=== PATIENT | female | born 1935 | race Caucasian/White ===

== ENCOUNTER 2017-08-13 15:07 | Inpatient (IN) | payer MEDICARE, SELFPAY ==
[~2017-08-13] VITALS: Ht 154.9 cm; Wt 61.4 kg
[2017-08-13] MEDS ORDERED: RANI150T7 PO (15:42)
[2017-08-13] MEDS ORDERED: PREG75 PO (15:42)
[2017-08-13] MEDS ORDERED: LEFL10TA15 PO (15:42)
[2017-08-13] MEDS ORDERED: PRED5 PO (15:42)
[2017-08-13] MEDS ORDERED: HYPERTENTION PO (15:42)
[2017-08-13] MEDS ORDERED: VANCOMYCIN HCL 1 GM/D5% WATER 200 ML IV ONE (17:00)
[2017-08-13 17:13] LABS: BASOPHILS # (AUTO) 0.06 K/uL (0.00-0.20); BASOPHILS % (AUTO) 0.8 % (0.0-2.0); EOSINOPHILS # (AUTO) 0.14 K/uL (0.00-0.70); EOSINOPHILS % (AUTO) 1.76 % (1.0-6.0); HEMATOCRIT 39.9 % (36-46); HEMOGLOBIN 11.9 g/dL (12.0-16.0); LYMPHOCYTES # (AUTO) 0.9 K/uL (1.0-4.8); LYMPHOCYTES % (AUTO) 11.1 % (22.0-44.0); MEAN CORPUSCULAR HEMOGLOBIN 27.7 pg (26.0-34.0); MEAN CORPUSCULAR HGB CONC 29.9 G/dL (31.0-37.0); MEAN CORPUSCULAR VOLUME 93 fL (80-100); MONOCYTES # (AUTO) 0.5 K/uL (0.1-1.0); MONOCYTES % (AUTO) 6.2 % (2.0-9.0); NEUTROPHILS # (AUTO) 6.6 K/uL (1.8-7.7); NEUTROPHILS % (AUTO) 80.2 % (40.0-70.0); PLATELET COUNT (AUTO) 188 K/uL (150-450); RED CELL DISTRIBUTION WIDTH 18.4 % (11.5-14.5); WHITE BLOOD COUNT (AUTO) 8.2 K/uL (4.5-11.0)
[2017-08-13 17:26] LABS: ANION GAP 7 mmol/L (8-16); CALCIUM, TOTAL 7.8 mg/dL (8.8-10.5); CARBON DIOXIDE 30 mmol/L (22-29); CHLORIDE 97 mmol/L (98-107); CREATININE 0.37 mg/dL (0.60-1.30); GLOMERULAR FILTR. RATE CALC > 60 mL/min (>60); POTASSIUM 4.6 mmol/L (3.5-5.1); SODIUM SERUM 134 mmol/L (136-145); UREA NITROGEN, BLOOD 7 mg/dL (7-18)
[2017-08-13 17:32] LABS: ALANINE AMINOTRANSFERASE 23 U/L (12-78); ALBUMIN 1.9 g/dL (3.4-5.0); ASPARTATE AMINOTRANSFERASE 43 U/L (15-37); BILIRUBIN,TOTAL 0.9 mg/dL (0.1-1.0); TOTAL PROTEIN, SERUM 5.1 g/dL (6.4-8.2)
[2017-08-13 17:44] LABS: RBC MORPHOLOGY COMMENT ABNORMAL RBC MORPH
[2017-08-13 17:58] LABS: LACTIC ACID 1.8 mmol/L (0.4-2.0)
[2017-08-13] MEDS ORDERED: ACETAMINOPHEN 325 MG TABLET PO PRN ×2 (18:00→21:30)
[2017-08-13] MEDS ORDERED: 0.9% SODIUM CHLORIDE 10 ML SYRINGE IVP PRN (18:00)
[2017-08-13] MEDS ORDERED: ONDANSETRON HCL 4 MG/2 ML VIAL IVP PRN ×2 (18:00→21:30)
[2017-08-13 18:07] LABS: GLUCOSE, URINE (UA) NEGATIVE (NEGATIVE); KETONES,URINE NEGATIVE (NEGATIVE); LEUKOCYTE ESTERASE ,URINE TRACE (NEGATIVE); OCCULT BLOOD,URINE MODERATE (NEGATIVE); PH,URINE 6.5 (5.0-8.0); PROTEIN,URINE NEGATIVE (NEGATIVE)
[2017-08-13 18:12] LABS: ADD UA MICROSCOPIC YES; APPEARANCE,URINE HAZY (CLEAR)
[2017-08-13 18:13] LABS: RBC,URINE 0-2 /HPF (0-2)
[2017-08-13 18:23] LABS: B-TYPE NATRIURETIC PEPTIDE 63 pg/mL (0-100)
[2017-08-13] MEDS ORDERED: PREGABALIN 75 MG CAPSULE PO ONE (20:15)
[2017-08-13 20:27] VITALS: BP 114/58
[2017-08-13] MEDS ORDERED: IPRATROPIUM BROMIDE 0.5 MG/2.5 ML NEB SOLUTION NEB PRN (21:30)
[2017-08-13] MEDS ORDERED: ZOLPIDEM TARTRATE 5 MG TABLET PO PRN (21:30)
[2017-08-13] MEDS ORDERED: MAGNESIUM HYDROXIDE SUSPENSION 30 ML UDCUP PO PRN (21:30)
[2017-08-13] MEDS ORDERED: ALBUTEROL SULFATE 2.5 MG/0.5 ML NEB SOLUTION NEB PRN (21:30)
[2017-08-13] MEDS ORDERED: BISACODYL 10 MG RECTAL RECTAL SUPPOSITORY PR PRN (21:30)
[2017-08-13] MEDS ORDERED: SODIUM CHLORIDE 0.9% 500 ML IV ONE (21:58)
[2017-08-13] MEDS: LEVOFLOXACIN 500 MG/D5% WATER 100 ML IV SCH (22:51)
[2017-08-13 23:57] VITALS: BP 100/53
[2017-08-14] MEDS: HEPARIN SODIUM,PORCINE 5,000 UNITS/ML VIAL SQ SCH ×4 (00:01→23:17)
[2017-08-14 05:23] VITALS: BP 121/71
[2017-08-14] MEDS: MORPHINE SULFATE 2 MG/ML SYRINGE IVP PRN (06:27)
[2017-08-14 07:26] LABS: ALANINE AMINOTRANSFERASE 20 U/L (12-78); ALBUMIN 1.2 g/dL (3.4-5.0); ANION GAP 6 mmol/L (8-16); ASPARTATE AMINOTRANSFERASE 56 U/L (15-37); BILIRUBIN,TOTAL 0.7 mg/dL (0.1-1.0); CALCIUM, TOTAL 6.8 mg/dL (8.8-10.5); CARBON DIOXIDE 27 mmol/L (22-29); CHLORIDE 98 mmol/L (98-107); CREATININE 0.27 mg/dL (0.60-1.30); GLOMERULAR FILTR. RATE CALC > 60 mL/min (>60); POTASSIUM 5.6 mmol/L (3.5-5.1); SODIUM SERUM 131 mmol/L (136-145); TOTAL PROTEIN, SERUM 3.6 g/dL (6.4-8.2); UREA NITROGEN, BLOOD 8 mg/dL (7-18)
[2017-08-14 07:56] VITALS: BP 105/47
[2017-08-14 08:38] LABS: BASOPHILS # (AUTO) 0.04 K/uL (0.00-0.20); BASOPHILS % (AUTO) 0.6 % (0.0-2.0); EOSINOPHILS # (AUTO) 0.22 K/uL (0.00-0.70); EOSINOPHILS % (AUTO) 3.43 % (1.0-6.0); HEMATOCRIT 33.9 % (36-46); LYMPHOCYTES # (AUTO) 0.8 K/uL (1.0-4.8); LYMPHOCYTES % (AUTO) 12.7 % (22.0-44.0); MEAN CORPUSCULAR HEMOGLOBIN 29.7 pg (26.0-34.0); MEAN CORPUSCULAR HGB CONC 32.3 G/dL (31.0-37.0); MEAN CORPUSCULAR VOLUME 92 fL (80-100); MONOCYTES # (AUTO) 0.4 K/uL (0.1-1.0); MONOCYTES % (AUTO) 6.5 % (2.0-9.0); NEUTROPHILS # (AUTO) 4.9 K/uL (1.8-7.7); NEUTROPHILS % (AUTO) 76.8 % (40.0-70.0); RED BLOOD CELL COUNT(AUTO) 3.68 MIL/uL (4.00-5.20); RED CELL DISTRIBUTION WIDTH 18.2 % (11.5-14.5); WHITE BLOOD COUNT (AUTO) 6.3 K/uL (4.5-11.0)
[2017-08-14] MEDS: RANITIDINE HCL 150 MG TABLET PO SCH (08:41)
[2017-08-14] MEDS: PANTOPRAZOLE SODIUM 40 MG/VIAL IVP SCH (08:41)
[2017-08-14] MEDS: DOCUSATE SODIUM 100 MG CAPSULE PO SCH ×2 (08:41→20:14)
[2017-08-14] MEDS: PredniSONE 5 MG TABLET PO SCH (08:41)
[2017-08-14] MEDS: PREGABALIN 75 MG CAPSULE PO SCH (08:41)
[2017-08-14 08:42] LABS: PLATELET COUNT (AUTO) 169 K/uL (150-450); RBC MORPHOLOGY COMMENT ABNORMAL RBC MORPH
[2017-08-14 08:46] LABS: ANION GAP 7 mmol/L (8-16); CALCIUM, TOTAL 7.4 mg/dL (8.8-10.5); CARBON DIOXIDE 30 mmol/L (22-29); CHLORIDE 98 mmol/L (98-107); CREATININE 0.41 mg/dL (0.60-1.30); GLOMERULAR FILTR. RATE CALC > 60 mL/min (>60); POTASSIUM 3.6 mmol/L (3.5-5.1); SODIUM SERUM 135 mmol/L (136-145); UREA NITROGEN, BLOOD 7 mg/dL (7-18)
[2017-08-14 11:33] VITALS: BP 103/60
[2017-08-14] MEDS: LEFLUNOMIDE 10 MG TAB PO SCH (13:32)
[2017-08-14 16:07] VITALS: BP 103/55
[2017-08-14 19:51] VITALS: BP 107/55
[2017-08-14] MEDS: LEVOFLOXACIN 500 MG/D5% WATER 100 ML IV SCH (21:49)
[2017-08-14 23:11] VITALS: BP 113/59
[2017-08-15 04:16] VITALS: BP 132/64
[2017-08-15 05:53] LABS: EOSINOPHILS % (AUTO) 1.7 % (1.0-6.0); HEMATOCRIT 29.3 % (36-46); HEMOGLOBIN 9.7 g/dL (12.0-16.0); LYMPHOCYTES # (AUTO) 1.1 K/uL (1.0-4.8); LYMPHOCYTES % (AUTO) 15.5 % (22.0-44.0); MEAN CORPUSCULAR HEMOGLOBIN 30.1 pg (26.0-34.0); MEAN CORPUSCULAR HGB CONC 33.1 G/dL (31.0-37.0); MEAN CORPUSCULAR VOLUME 91 fL (80-100); MONOCYTES # (AUTO) 0.5 K/uL (0.1-1.0); MONOCYTES % (AUTO) 7.2 % (2.0-9.0); NEUTROPHILS # (AUTO) 5.3 K/uL (1.8-7.7); NEUTROPHILS % (AUTO) 74.6 % (40.0-70.0); PLATELET COUNT (AUTO) 172 K/uL (150-450); RED BLOOD CELL COUNT(AUTO) 3.22 MIL/uL (4.00-5.20); RED CELL DISTRIBUTION WIDTH 17.8 % (11.5-14.5); WHITE BLOOD COUNT (AUTO) 7.1 K/uL (4.5-11.0)
[2017-08-15] MEDS: HYDROCODONE/ACETAMINOPHEN 5-325 MG TABLET PO PRN (06:08)
[2017-08-15 06:09] LABS: ALANINE AMINOTRANSFERASE 17 U/L (12-78); ALBUMIN 1.4 g/dL (3.4-5.0); ANION GAP 5 mmol/L (8-16); ASPARTATE AMINOTRANSFERASE 21 U/L (15-37); BILIRUBIN,TOTAL 0.7 mg/dL (0.1-1.0); CALCIUM, TOTAL 7.4 mg/dL (8.8-10.5); CARBON DIOXIDE 29 mmol/L (22-29); CHLORIDE 98 mmol/L (98-107); CREATININE 0.34 mg/dL (0.60-1.30); GLOMERULAR FILTR. RATE CALC > 60 mL/min (>60); POTASSIUM 3.1 mmol/L (3.5-5.1); SODIUM SERUM 132 mmol/L (136-145); UREA NITROGEN, BLOOD 6 mg/dL (7-18)
[2017-08-15 08:04] VITALS: BP 99/50
[2017-08-15] MEDS: ZINC SULFATE 220 MG CAPSULE PO SCH (08:59)
[2017-08-15] MEDS: MULTIVITAMINS WITH MINERALS, THERAPEUTIC TABLET PO SCH (08:59)
[2017-08-15] MEDS: ASCORBIC ACID 500 MG TABLET PO SCH (08:59)
[2017-08-15] MEDS: PREGABALIN 75 MG CAPSULE PO SCH (09:00)
[2017-08-15] MEDS: DOCUSATE SODIUM 100 MG CAPSULE PO SCH ×2 (09:00→21:00)
[2017-08-15] MEDS: PANTOPRAZOLE SODIUM 40 MG/VIAL IVP SCH (09:00)
[2017-08-15] MEDS: HEPARIN SODIUM,PORCINE 5,000 UNITS/ML VIAL SQ SCH ×2 (09:00→15:16)
[2017-08-15] MEDS ORDERED: POTASSIUM CHL 10 MEQ/WATER 50 ML IV PRN (09:00)
[2017-08-15] MEDS: PredniSONE 5 MG TABLET PO SCH (09:01)
[2017-08-15] MEDS: RANITIDINE HCL 150 MG TABLET PO SCH (09:01)
[2017-08-15] MEDS: LEFLUNOMIDE 10 MG TAB PO SCH (09:02)
[2017-08-15] MEDS: POTASSIUM CHLORIDE 20 MEQ ER TABLET PO PRN (09:56)
[2017-08-15] MEDS: SODIUM HYPOCHLORITE 0.25% [HALF STRENGTH] 473 ML SOLUTION TP SCH (11:22)
[2017-08-15 11:43] VITALS: BP 102/64
[2017-08-15] MEDS: MORPHINE SULFATE 2 MG/ML SYRINGE IVP PRN (15:16)
[2017-08-15 16:10] VITALS: BP 134/70
[2017-08-15 19:54] VITALS: BP 132/83
[2017-08-15] MEDS: LEVOFLOXACIN 500 MG/D5% WATER 100 ML IV SCH (22:00)
[2017-08-15 23:49] VITALS: BP 115/82
[2017-08-16] MEDS: HEPARIN SODIUM,PORCINE 5,000 UNITS/ML VIAL SQ SCH ×4 (01:02→23:00)
[2017-08-16 04:37] VITALS: BP 128/62
[2017-08-16] MEDS: MORPHINE SULFATE 2 MG/ML SYRINGE IVP PRN ×2 (05:58→17:25)
[2017-08-16 07:10] LABS: BASOPHILS % (AUTO) 1.9 % (0.0-2.0); EOSINOPHILS % (AUTO) 2.6 % (1.0-6.0); HEMATOCRIT 29.3 % (36-46); HEMOGLOBIN 9.7 g/dL (12.0-16.0); LYMPHOCYTES # (AUTO) 0.9 K/uL (1.0-4.8); LYMPHOCYTES % (AUTO) 14.1 % (22.0-44.0); MEAN CORPUSCULAR HEMOGLOBIN 30.3 pg (26.0-34.0); MEAN CORPUSCULAR HGB CONC 33.2 G/dL (31.0-37.0); MEAN CORPUSCULAR VOLUME 91 fL (80-100); MONOCYTES # (AUTO) 0.6 K/uL (0.1-1.0); MONOCYTES % (AUTO) 8.8 % (2.0-9.0); NEUTROPHILS # (AUTO) 4.8 K/uL (1.8-7.7); NEUTROPHILS % (AUTO) 72.6 % (40.0-70.0); PLATELET COUNT (AUTO) 168 K/uL (150-450); RED BLOOD CELL COUNT(AUTO) 3.22 MIL/uL (4.00-5.20); WHITE BLOOD COUNT (AUTO) 6.6 K/uL (4.5-11.0)
[2017-08-16 07:32] LABS: ALANINE AMINOTRANSFERASE 16 U/L (12-78); ALBUMIN 1.4 g/dL (3.4-5.0); ANION GAP 5 mmol/L (8-16); ASPARTATE AMINOTRANSFERASE 17 U/L (15-37); BILIRUBIN,TOTAL 0.6 mg/dL (0.1-1.0); CALCIUM, TOTAL 7.4 mg/dL (8.8-10.5); CARBON DIOXIDE 29 mmol/L (22-29); CHLORIDE 99 mmol/L (98-107); CREATININE 0.33 mg/dL (0.60-1.30); GLOMERULAR FILTR. RATE CALC > 60 mL/min (>60); POTASSIUM 3.6 mmol/L (3.5-5.1); SODIUM SERUM 133 mmol/L (136-145); TOTAL PROTEIN, SERUM 3.9 g/dL (6.4-8.2); UREA NITROGEN, BLOOD 6 mg/dL (7-18)
[2017-08-16 07:35] VITALS: BP 103/50
[2017-08-16] MEDS: AMINO ACIDS/PROTEIN HYDROLYS 30 ML TUBE PO SCH ×2 (08:00→12:00)
[2017-08-16] MEDS: ASCORBIC ACID 500 MG TABLET PO SCH (09:00)
[2017-08-16] MEDS: DOCUSATE SODIUM 100 MG CAPSULE PO SCH ×2 (09:00→20:08)
[2017-08-16] MEDS: ZINC SULFATE 220 MG CAPSULE PO SCH (09:00)
[2017-08-16] MEDS: LEFLUNOMIDE 10 MG TAB PO SCH (09:00)
[2017-08-16] MEDS: SODIUM HYPOCHLORITE 0.25% [HALF STRENGTH] 473 ML SOLUTION TP SCH (09:00)
[2017-08-16] MEDS: MULTIVITAMINS WITH MINERALS, THERAPEUTIC TABLET PO SCH (09:00)
[2017-08-16] MEDS: PANTOPRAZOLE SODIUM 40 MG/VIAL IVP SCH (09:00)
[2017-08-16] MEDS: PREGABALIN 75 MG CAPSULE PO SCH (09:00)
[2017-08-16] MEDS: RANITIDINE HCL 150 MG TABLET PO SCH (09:00)
[2017-08-16] MEDS: PredniSONE 5 MG TABLET PO SCH (09:00)
[2017-08-16 13:12] VITALS: BP 111/63
[2017-08-16] MEDS: LACTOBAC ACID/BULG/BIFID/THERM TABLET PO SCH ×2 (16:14→20:08)
[2017-08-16] MEDS: CefTRIAXone 1 GM/DEXTROSE 50 ML IV SCH (16:15)
[2017-08-16 16:26] VITALS: BP 112/54
[2017-08-16 19:56] VITALS: BP 109/48
[2017-08-16 23:41] VITALS: BP 107/51
[2017-08-17 04:39] VITALS: BP 104/44
[2017-08-17 06:11] LABS: ALANINE AMINOTRANSFERASE 17 U/L (12-78); ALBUMIN 1.5 g/dL (3.4-5.0); ANION GAP 7 mmol/L (8-16); ASPARTATE AMINOTRANSFERASE 24 U/L (15-37); BILIRUBIN,TOTAL 0.6 mg/dL (0.1-1.0); CALCIUM, TOTAL 7.5 mg/dL (8.8-10.5); CARBON DIOXIDE 28 mmol/L (22-29); CHLORIDE 98 mmol/L (98-107); GLOMERULAR FILTR. RATE CALC > 60 mL/min (>60); POTASSIUM 4.1 mmol/L (3.5-5.1); SODIUM SERUM 133 mmol/L (136-145); TOTAL PROTEIN, SERUM 4.3 g/dL (6.4-8.2); UREA NITROGEN, BLOOD 7 mg/dL (7-18)
[2017-08-17] MEDS: MORPHINE SULFATE 2 MG/ML SYRINGE IVP PRN ×2 (06:41→13:26)
[2017-08-17 07:00] LABS: BASOPHILS # (AUTO) 0.14 K/uL (0.00-0.20); BASOPHILS % (AUTO) 2.2 % (0.0-2.0); EOSINOPHILS # (AUTO) 0.15 K/uL (0.00-0.70); EOSINOPHILS % (AUTO) 2.31 % (1.0-6.0); HEMATOCRIT 32.3 % (36-46); HEMOGLOBIN 10.3 g/dL (12.0-16.0); LYMPHOCYTES # (AUTO) 1.4 K/uL (1.0-4.8); LYMPHOCYTES % (AUTO) 21.2 % (22.0-44.0); MEAN CORPUSCULAR HEMOGLOBIN 29.7 pg (26.0-34.0); MEAN CORPUSCULAR HGB CONC 31.9 G/dL (31.0-37.0); MEAN CORPUSCULAR VOLUME 93 fL (80-100); MONOCYTES # (AUTO) 0.5 K/uL (0.1-1.0); MONOCYTES % (AUTO) 7.8 % (2.0-9.0); NEUTROPHILS # (AUTO) 4.4 K/uL (1.8-7.7); NEUTROPHILS % (AUTO) 66.5 % (40.0-70.0); PLATELET COUNT (AUTO) 175 K/uL (150-450); RED BLOOD CELL COUNT(AUTO) 3.48 MIL/uL (4.00-5.20); RED CELL DISTRIBUTION WIDTH 17.9 % (11.5-14.5); WHITE BLOOD COUNT (AUTO) 6.6 K/uL (4.5-11.0)
[2017-08-17 07:26] VITALS: BP 109/52
[2017-08-17 08:25] LABS: RBC MORPHOLOGY COMMENT ABNORMAL RBC MORPH
[2017-08-17] MEDS: ASCORBIC ACID 500 MG TABLET PO SCH (08:32)
[2017-08-17] MEDS: PREGABALIN 75 MG CAPSULE PO SCH (08:32)
[2017-08-17] MEDS: MULTIVITAMINS WITH MINERALS, THERAPEUTIC TABLET PO SCH (08:32)
[2017-08-17] MEDS: ZINC SULFATE 220 MG CAPSULE PO SCH (08:32)
[2017-08-17] MEDS: LACTOBAC ACID/BULG/BIFID/THERM TABLET PO SCH ×3 (08:32→20:13)
[2017-08-17] MEDS: AMINO ACIDS/PROTEIN HYDROLYS 30 ML TUBE PO SCH ×2 (08:33→13:26)
[2017-08-17] MEDS: LEFLUNOMIDE 10 MG TAB PO SCH (08:33)
[2017-08-17] MEDS: PredniSONE 5 MG TABLET PO SCH (08:33)
[2017-08-17] MEDS: HEPARIN SODIUM,PORCINE 5,000 UNITS/ML VIAL SQ SCH ×3 (08:33→22:54)
[2017-08-17] MEDS: PANTOPRAZOLE SODIUM 40 MG/VIAL IVP SCH (08:33)
[2017-08-17] MEDS: RANITIDINE HCL 150 MG TABLET PO SCH (08:33)
[2017-08-17] MEDS: DOCUSATE SODIUM 100 MG CAPSULE PO SCH ×2 (08:33→20:13)
[2017-08-17 11:27] VITALS: BP 97/54
[2017-08-17] MEDS ORDERED: SODIUM CL IRRIG SOLN BOTTLE 250 ML IRRIG ONE (12:54)
[2017-08-17] MEDS: SODIUM HYPOCHLORITE 0.25% [HALF STRENGTH] 473 ML SOLUTION TP SCH (14:36)
[2017-08-17] MEDS: CefTRIAXone 1 GM/DEXTROSE 50 ML IV SCH (14:48)
[2017-08-17 15:34] VITALS: BP 104/54
[2017-08-17 19:39] VITALS: BP 106/74
[2017-08-18] VITALS (7 sets, daily range): BP systolic 97–122; BP diastolic 43–64
[2017-08-18] MEDS: MORPHINE SULFATE 2 MG/ML SYRINGE IVP PRN (06:37)
[2017-08-18 06:43] LABS: BASOPHILS % (AUTO) 2.3 % (0.0-2.0); EOSINOPHILS % (AUTO) 3.6 % (1.0-6.0); HEMOGLOBIN 10.2 g/dL (12.0-16.0); LYMPHOCYTES # (AUTO) 1.4 K/uL (1.0-4.8); LYMPHOCYTES % (AUTO) 21.8 % (22.0-44.0); MEAN CORPUSCULAR HEMOGLOBIN 30.1 pg (26.0-34.0); MEAN CORPUSCULAR HGB CONC 32.8 G/dL (31.0-37.0); MEAN CORPUSCULAR VOLUME 92 fL (80-100); MONOCYTES # (AUTO) 0.7 K/uL (0.1-1.0); MONOCYTES % (AUTO) 10.5 % (2.0-9.0); NEUTROPHILS % (AUTO) 61.8 % (40.0-70.0); PLATELET COUNT (AUTO) 176 K/uL (150-450); RED BLOOD CELL COUNT(AUTO) 3.37 MIL/uL (4.00-5.20); RED CELL DISTRIBUTION WIDTH 18.3 % (11.5-14.5); WHITE BLOOD COUNT (AUTO) 6.4 K/uL (4.5-11.0)
[2017-08-18 07:20] LABS: ALANINE AMINOTRANSFERASE 16 U/L (12-78); ALBUMIN 1.4 g/dL (3.4-5.0); ANION GAP 5 mmol/L (8-16); ASPARTATE AMINOTRANSFERASE 22 U/L (15-37); BILIRUBIN,TOTAL 0.4 mg/dL (0.1-1.0); CALCIUM, TOTAL 7.3 mg/dL (8.8-10.5); CARBON DIOXIDE 30 mmol/L (22-29); CHLORIDE 99 mmol/L (98-107); CREATININE 0.32 mg/dL (0.60-1.30); GLOMERULAR FILTR. RATE CALC > 60 mL/min (>60); POTASSIUM 3.5 mmol/L (3.5-5.1); SODIUM SERUM 134 mmol/L (136-145); UREA NITROGEN, BLOOD 7 mg/dL (7-18)
[2017-08-18] MEDS: RANITIDINE HCL 150 MG TABLET PO SCH (08:56)
[2017-08-18] MEDS: LACTOBAC ACID/BULG/BIFID/THERM TABLET PO SCH ×3 (08:56→20:48)
[2017-08-18] MEDS: LEFLUNOMIDE 10 MG TAB PO SCH (08:56)
[2017-08-18] MEDS: ZINC SULFATE 220 MG CAPSULE PO SCH (08:56)
[2017-08-18] MEDS: HEPARIN SODIUM,PORCINE 5,000 UNITS/ML VIAL SQ SCH ×3 (08:57→23:20)
[2017-08-18] MEDS: PANTOPRAZOLE SODIUM 40 MG/VIAL IVP SCH (08:57)
[2017-08-18] MEDS: AMINO ACIDS/PROTEIN HYDROLYS 30 ML TUBE PO SCH ×2 (08:57→13:21)
[2017-08-18] MEDS: PredniSONE 5 MG TABLET PO SCH (08:57)
[2017-08-18] MEDS: PREGABALIN 75 MG CAPSULE PO SCH (08:57)
[2017-08-18] MEDS: MULTIVITAMINS WITH MINERALS, THERAPEUTIC TABLET PO SCH (08:57)
[2017-08-18] MEDS: ASCORBIC ACID 500 MG TABLET PO SCH (08:57)
[2017-08-18] MEDS: DOCUSATE SODIUM 100 MG CAPSULE PO SCH ×2 (08:58→20:48)
[2017-08-18 09:33] LABS: RBC MORPHOLOGY COMMENT ABNORMAL RBC MORPH
[2017-08-18] MEDS ORDERED: LORazepam 2 MG/ML VIAL IVP ONE (13:30)
[2017-08-18] MEDS: CefTRIAXone 1 GM/DEXTROSE 50 ML IV SCH (16:12)
[2017-08-18] MEDS: SODIUM HYPOCHLORITE 0.25% [HALF STRENGTH] 473 ML SOLUTION TP SCH (16:18)
[2017-08-19 04:59] VITALS: BP 116/48
[2017-08-19 07:15] LABS: HEMATOCRIT 33.4 % (36-46); LYMPHOCYTES # (AUTO) 1.4 K/uL (1.0-4.8); LYMPHOCYTES % (AUTO) 18.2 % (22.0-44.0); MEAN CORPUSCULAR VOLUME 91 fL (80-100); MONOCYTES # (AUTO) 0.5 K/uL (0.1-1.0); MONOCYTES % (AUTO) 6.2 % (2.0-9.0); NEUTROPHILS # (AUTO) 5.3 K/uL (1.8-7.7); NEUTROPHILS % (AUTO) 70.6 % (40.0-70.0); PLATELET COUNT (AUTO) 216 K/uL (150-450); RED BLOOD CELL COUNT(AUTO) 3.66 MIL/uL (4.00-5.20); RED CELL DISTRIBUTION WIDTH 18.1 % (11.5-14.5); WHITE BLOOD COUNT (AUTO) 7.6 K/uL (4.5-11.0)
[2017-08-19 07:18] LABS: RBC MORPHOLOGY COMMENT ABNORMAL RBC MORPH
[2017-08-19 07:30] LABS: ALANINE AMINOTRANSFERASE 18 U/L (12-78); ALBUMIN 1.6 g/dL (3.4-5.0); ANION GAP 6 mmol/L (8-16); ASPARTATE AMINOTRANSFERASE 22 U/L (15-37); BILIRUBIN,TOTAL 0.5 mg/dL (0.1-1.0); CALCIUM, TOTAL 7.6 mg/dL (8.8-10.5); CARBON DIOXIDE 30 mmol/L (22-29); CHLORIDE 100 mmol/L (98-107); CREATININE 0.34 mg/dL (0.60-1.30); GLOMERULAR FILTR. RATE CALC > 60 mL/min (>60); POTASSIUM 3.3 mmol/L (3.5-5.1); SODIUM SERUM 136 mmol/L (136-145); TOTAL PROTEIN, SERUM 4.3 g/dL (6.4-8.2); UREA NITROGEN, BLOOD 8 mg/dL (7-18)
[2017-08-19] MEDS: AMINO ACIDS/PROTEIN HYDROLYS 30 ML TUBE PO SCH ×2 (08:00→12:00)
[2017-08-19] MEDS: HEPARIN SODIUM,PORCINE 5,000 UNITS/ML VIAL SQ SCH ×2 (08:59→15:30)
[2017-08-19] MEDS: MULTIVITAMINS WITH MINERALS, THERAPEUTIC TABLET PO SCH (09:01)
[2017-08-19] MEDS: ZINC SULFATE 220 MG CAPSULE PO SCH (09:01)
[2017-08-19] MEDS: RANITIDINE HCL 150 MG TABLET PO SCH (09:01)
[2017-08-19] MEDS: PredniSONE 5 MG TABLET PO SCH (09:01)
[2017-08-19] MEDS: LACTOBAC ACID/BULG/BIFID/THERM TABLET PO SCH ×3 (09:01→19:43)
[2017-08-19] MEDS: DOCUSATE SODIUM 100 MG CAPSULE PO SCH ×2 (09:01→19:43)
[2017-08-19] MEDS: ASCORBIC ACID 500 MG TABLET PO SCH (09:01)
[2017-08-19] MEDS: PANTOPRAZOLE SODIUM 40 MG/VIAL IVP SCH (09:02)
[2017-08-19] MEDS: LEFLUNOMIDE 10 MG TAB PO SCH (09:02)
[2017-08-19] MEDS: SODIUM HYPOCHLORITE 0.25% [HALF STRENGTH] 473 ML SOLUTION TP SCH (09:02)
[2017-08-19] MEDS: PREGABALIN 75 MG CAPSULE PO SCH (09:06)
[2017-08-19] MEDS: POTASSIUM CHLORIDE 20 MEQ ER TABLET PO PRN (11:32)
[2017-08-19 12:21] VITALS: BP 100/71
[2017-08-19] MEDS: MORPHINE SULFATE 2 MG/ML SYRINGE IVP PRN (15:29)
[2017-08-19] MEDS: CefTRIAXone 1 GM/DEXTROSE 50 ML IV SCH (15:29)
[2017-08-19 16:02] VITALS: BP 134/57
[2017-08-19 19:25] VITALS: BP 108/53
[2017-08-19] MEDS: HYDROCODONE/ACETAMINOPHEN 5-325 MG TABLET PO PRN (19:43)
[2017-08-20] MEDS: HEPARIN SODIUM,PORCINE 5,000 UNITS/ML VIAL SQ SCH ×2 (01:48→08:51)
[2017-08-20 01:54] VITALS: BP 117/56
[2017-08-20 05:51] VITALS: BP 105/56
[2017-08-20] MEDS: HYDROCODONE/ACETAMINOPHEN 5-325 MG TABLET PO PRN ×2 (06:51→12:08)
[2017-08-20 07:02] LABS: BASOPHILS % (AUTO) 2.4 % (0.0-2.0); HEMATOCRIT 31.2 % (36-46); HEMOGLOBIN 10.4 g/dL (12.0-16.0); LYMPHOCYTES # (AUTO) 1.7 K/uL (1.0-4.8); LYMPHOCYTES % (AUTO) 23.6 % (22.0-44.0); MEAN CORPUSCULAR HEMOGLOBIN 30.2 pg (26.0-34.0); MEAN CORPUSCULAR HGB CONC 33.3 G/dL (31.0-37.0); MEAN CORPUSCULAR VOLUME 91 fL (80-100); MONOCYTES # (AUTO) 0.6 K/uL (0.1-1.0); MONOCYTES % (AUTO) 7.7 % (2.0-9.0); NEUTROPHILS # (AUTO) 4.5 K/uL (1.8-7.7); NEUTROPHILS % (AUTO) 61.3 % (40.0-70.0); PLATELET COUNT (AUTO) 210 K/uL (150-450); RED BLOOD CELL COUNT(AUTO) 3.45 MIL/uL (4.00-5.20); RED CELL DISTRIBUTION WIDTH 18.2 % (11.5-14.5); WHITE BLOOD COUNT (AUTO) 7.4 K/uL (4.5-11.0)
[2017-08-20 07:16] LABS: ALANINE AMINOTRANSFERASE 17 U/L (12-78); ALBUMIN 1.5 g/dL (3.4-5.0); ANION GAP 7 mmol/L (8-16); ASPARTATE AMINOTRANSFERASE 18 U/L (15-37); BILIRUBIN,TOTAL 0.4 mg/dL (0.1-1.0); CALCIUM, TOTAL 7.5 mg/dL (8.8-10.5); CARBON DIOXIDE 30 mmol/L (22-29); CHLORIDE 101 mmol/L (98-107); CREATININE 0.31 mg/dL (0.60-1.30); GLOMERULAR FILTR. RATE CALC > 60 mL/min (>60); POTASSIUM 3.9 mmol/L (3.5-5.1); SODIUM SERUM 138 mmol/L (136-145); TOTAL PROTEIN, SERUM 3.9 g/dL (6.4-8.2); UREA NITROGEN, BLOOD 9 mg/dL (7-18)
[2017-08-20 07:30] VITALS: BP 99/51
[2017-08-20 07:40] LABS: RBC MORPHOLOGY COMMENT ABNORMAL RBC MORPH
[2017-08-20] MEDS: PREGABALIN 75 MG CAPSULE PO SCH (08:51)
[2017-08-20] MEDS: LACTOBAC ACID/BULG/BIFID/THERM TABLET PO SCH (08:51)
[2017-08-20] MEDS: PredniSONE 5 MG TABLET PO SCH (08:51)
[2017-08-20] MEDS: MULTIVITAMINS WITH MINERALS, THERAPEUTIC TABLET PO SCH (08:51)
[2017-08-20] MEDS: ASCORBIC ACID 500 MG TABLET PO SCH (08:51)
[2017-08-20] MEDS: DOCUSATE SODIUM 100 MG CAPSULE PO SCH (08:51)
[2017-08-20] MEDS: LEFLUNOMIDE 10 MG TAB PO SCH (08:51)
[2017-08-20] MEDS: RANITIDINE HCL 150 MG TABLET PO SCH (08:51)
[2017-08-20] MEDS: SODIUM HYPOCHLORITE 0.25% [HALF STRENGTH] 473 ML SOLUTION TP SCH (09:02)
[2017-08-20] MEDS: ZINC SULFATE 220 MG CAPSULE PO SCH (09:02)
[2017-08-20] MEDS: AMINO ACIDS/PROTEIN HYDROLYS 30 ML TUBE PO SCH ×2 (09:03→12:09)
[2017-08-20 12:04] VITALS: BP 105/44
== END 2017-08-20 13:30 | DRG 981 ==
LOC: EMS 15:08 → 6N 18:46
PROVIDERS: ADMIT Hospitalist; ATTEND Hospitalist
PROC: 0QB10ZZ Excision of Sacrum, Open Approach (ICD-10-PCS; principal; 2017-08-17)
DX: L89.154 Pressure ulcer of sacral region, stage 4 (principal); E43 Unspecified severe protein-calorie malnutrition; G82.50 Quadriplegia, unspecified; N39.0 Urinary tract infection, site not specified; M06.9 Rheumatoid arthritis, unspecified; B96.1 Klebsiella pneumoniae [K. pneumoniae] as the cause of diseases classified elsewhere; I10 Essential (primary) hypertension; L21.9 Seborrheic dermatitis, unspecified; R62.7 Adult failure to thrive; Z74.01 Bed confinement status; Z90.10 Acquired absence of unspecified breast and nipple; Z88.0 Allergy status to penicillin
CPT/HCPCS: 72195; 83605; 84132; 87040; 87070; 87086; 87205; 92610; 96365; 96366; 99285; C9113; J0696; J1644; J1956; J2060; J2270; J2405; J3370; J7040

== ENCOUNTER 2017-09-05 13:00 | Inpatient (IN) | payer MEDICARE, SELFPAY ==
[~2017-09-05] VITALS: Ht 162.6 cm; Wt 63.2 kg
[~2017-09-05 13:00] MED LIST: ATROPINE SULFATE 0.1 MG/ML 10 ML SYRINGE IVP ONE; EPINEPHrine 1:1,000 [1 MG/ML] AMP IM ONE; HYPERTENTION PO; LEFL10TA15 PO; PRED5 PO; PREG75 PO; RANI150T7 PO
[2017-09-05] MEDS ORDERED: SODIUM CHLORIDE 0.9% 1,000 ML IV ONE ×4 (13:15→21:45)
[2017-09-05 14:45] LABS: HEMATOCRIT 29.1 % (36-46); HEMOGLOBIN 9.6 g/dL (12.0-16.0); MEAN CORPUSCULAR HEMOGLOBIN 31.3 pg (26.0-34.0); MEAN CORPUSCULAR HGB CONC 32.8 G/dL (31.0-37.0); MEAN CORPUSCULAR VOLUME 95 fL (80-100); PLATELET COUNT (AUTO) 272 K/uL (150-450); RED BLOOD CELL COUNT(AUTO) 3.06 MIL/uL (4.00-5.20); RED CELL DISTRIBUTION WIDTH 24.4 % (11.5-14.5); WHITE BLOOD COUNT (AUTO) 8.2 K/uL (4.5-11.0)
[2017-09-05 14:59] LABS: ANION GAP 17 mmol/L (8-16); CALCIUM, TOTAL 7.2 mg/dL (8.8-10.5); CARBON DIOXIDE 21 mmol/L (22-29); CHLORIDE 101 mmol/L (98-107); CREATININE 0.96 mg/dL (0.60-1.30); GLOMERULAR FILTR. RATE CALC 56 mL/min (>60); POTASSIUM 3.7 mmol/L (3.5-5.1); SODIUM SERUM 139 mmol/L (136-145); UREA NITROGEN, BLOOD 24 mg/dL (7-18)
[2017-09-05 15:01] LABS: INR 3.9 (0.9-1.1); PROTHROMBIN TIME 41.6 SEC (9.4-11.6)
[2017-09-05 15:20] LABS: LACTIC ACID 5.7 mmol/L (0.4-2.0)
[2017-09-05 15:23] LABS: ALANINE AMINOTRANSFERASE 44 U/L (12-78); ALBUMIN 1.5 g/dL (3.4-5.0); ASPARTATE AMINOTRANSFERASE 89 U/L (15-37); BILIRUBIN,TOTAL 0.8 mg/dL (0.1-1.0); CREATINE KINASE MB 10.7 ng/mL (0-5); CREATINE KINASE, TOTAL 303 U/L (26-192); TOTAL PROTEIN, SERUM 4.3 g/dL (6.4-8.2)
[2017-09-05] MEDS ORDERED: CefTRIAXone 1 GM/DEXTROSE 50 ML IV ONE (15:30)
[2017-09-05 15:41] LABS: INFLUENZA TYPE B NEGATIVE FOR TYPE B (NEGATIVE)
[2017-09-05 16:18] LABS: BAND NEUTROPHILS % (MANUAL) 11 % (1-5); LYMPHOCYTES % (MANUAL) 9 % (22-44); METAMYELOCYTES % 2 % (0-0); REACTIVE LYMPHOCYTES 3 % (0-0); TOTAL CELLS COUNTED 100
[2017-09-05 16:19] LABS: WBC MORPHOLOGY TOXIC VACUOLATION
[2017-09-05 16:21] LABS: RBC MORPHOLOGY COMMENT ABNORMAL R
[2017-09-05 16:31] LABS: PROTHROMBIN TIME 42.8 SEC (9.4-11.6)
[2017-09-05 16:32] LABS: APPEARANCE,URINE TURBID (CLEAR); GLUCOSE, URINE (UA) NEGATIVE (NEGATIVE); KETONES,URINE TRACE mg/dL (NEGATIVE); LEUKOCYTE ESTERASE ,URINE MODERATE (NEGATIVE); OCCULT BLOOD,URINE SMALL (NEGATIVE); PROTEIN,URINE POS 1+ (NEGATIVE)
[2017-09-05 16:34] LABS: ADD UA MICROSCOPIC YES
[2017-09-05 16:42] LABS: REFLEX LACTIC ACID? YES YES
[2017-09-05 16:49] LABS: SQUAMOUS EPITHELIAL CELL,UR Few /LPF (None Seen)
[2017-09-05] MEDS ORDERED: ACETAMINOPHEN 325 MG TABLET PO PRN ×2 (17:15→21:45)
[2017-09-05] MEDS ORDERED: ONDANSETRON HCL 4 MG/2 ML VIAL IVP PRN ×2 (17:15→21:45)
[2017-09-05 18:57] VITALS: BP 112/72
[2017-09-05] MEDS ORDERED: MORPHINE SULFATE 2 MG/ML SYRINGE IVP PRN (21:45)
[2017-09-05] MEDS ORDERED: HYDROCODONE/ACETAMINOPHEN 5-325 MG TABLET PO PRN (21:45)
[2017-09-05] MEDS ORDERED: ZOLPIDEM TARTRATE 5 MG TABLET PO PRN (21:45)
[2017-09-05] MEDS ORDERED: BISACODYL 10 MG RECTAL RECTAL SUPPOSITORY PR PRN (21:45)
[2017-09-05] MEDS ORDERED: MAGNESIUM HYDROXIDE SUSPENSION 30 ML UDCUP PO PRN (21:45)
[2017-09-05] MEDS ORDERED: LEVOFLOXACIN 750 MG/D5% WATER 150 ML IV SCH (22:00)
[2017-09-05] MEDS ORDERED: IOVERSOL 320 MG/ML 100 ML VIAL ONE (23:16)
[2017-09-06] MEDS ORDERED: HEPARIN SODIUM,PORCINE 5,000 UNITS/ML VIAL SQ SCH
[2017-09-06 00:56] VITALS: BP 148/92
[2017-09-06] MEDS ORDERED: PANTOPRAZOLE SODIUM 40 MG DR TABLET PO SCH (09:00)
[2017-09-06] MEDS ORDERED: DOCUSATE SODIUM 100 MG CAPSULE PO SCH (09:00)
[2017-09-06 11:22] LABS: GLUCOSE,POINT OF CARE 91 MG/DL (70-110)
== END 2017-09-06 07:30 | disposition expired | DRG 871 ==
LOC: EMS 13:07 → 5S 17:03
PROVIDERS: ADMIT Internal Medicine; ATTEND Internal Medicine
PROC: 05HQ33Z Insertion of Infusion Device into Left External Jugular Vein, Percutaneous Approach (ICD-10-PCS; principal; 2017-09-06)
DX: A41.9 Sepsis, unspecified organism (principal); E43 Unspecified severe protein-calorie malnutrition; J96.90 Respiratory failure, unspecified, unspecified whether with hypoxia or hypercapnia; I46.9 Cardiac arrest, cause unspecified; G93.41 Metabolic encephalopathy; D68.9 Coagulation defect, unspecified; E86.0 Dehydration; M06.9 Rheumatoid arthritis, unspecified; N39.0 Urinary tract infection, site not specified; Z66 Do not resuscitate; I10 Essential (primary) hypertension; Z87.440 Personal history of urinary (tract) infections; Z74.01 Bed confinement status; Z88.0 Allergy status to penicillin; Z68.23 Body mass index [BMI] 23.0-23.9, adult
CPT/HCPCS: 51702; 70450; 71250; 72192; 74150; 82962; 83605; 87040; 87086; 87804; 92950; 93005; 96361; 96365; 99291; J0171; J0461; J0696; J1644; J1956; J7030